=== PATIENT | male | born 1980 | race Caucasian/White ===

== ENCOUNTER 2020-04-07 11:15 | Emergency (ER) | payer OTHER, MEDICAID, SELFPAY ==
[2020-04-07 11:16] VITALS: BP 164/100; PULSE 80; PULSE 97; RESP 19; RESP 22; TEMP 36.4; O2SAT 100; O2SAT 98; BMI 28.7
--- NOTE | 2020-04-07 11:23 | ED.VIS.GEN ---
History of Present Illness Chief Complaint: Allergic Reaction Informant: Patient Narrative: Patient is a 39-year-old male who presents to the emergency department for suspected allergic reaction. He took a new medication, Lexapro around 10 AM this morning. Shortly after he started feel his throat was closing. He had difficulty with breathing. He felt like his voice was changing. He can immediately to the emergency department did not take any medications for this. He has never had this happen before in the past. He is starting to feel better upon arrival to the ED. Patient is also on lisinopril but has been on it for 10 years. His doctor actually told him to stop this this morning and he was started on Cozaar instead. He did not take a first dose of this yet. Patient denies any rashes or itching elsewhere. Denies any chest pain or palpitations. No abdominal pain or nausea/vomiting. Past Medical History - Allergies and Home Meds Allergies/Adverse Reactions: Allergies escitalopram [From Lexapro] Allergy (Verified 04/07/20 11:22) Angioedema Primary Care Physician: Karan Cheung MD [Primary Care Provider] - 3-5 Days Prior records reviewed: Yes Past Medical History: - - Anxiety/depression, hypertension Smoking Status: Never smoker Review of Systems All systems negative except as indicated General: Denies: Chills, Fever, Sweats Eyes: Denies: Visual changes - bilaterally, Diplopia ENT: Denies: Rhinorrhea, Sore throat Cardiovascular: Denies: Chest pain, Palpitations Respiratory: Reports: Dyspnea. Denies: Cough, Dyspnea on exertion Gastrointestinal: Denies: Abdominal pain, Nausea, Vomiting, Diarrhea Musculoskeletal: Denies: Back pain, Extremity Pain Skin: Denies: Rash, Wounds Neurological: Denies: Headache, Weakness, Numbness Allergy: Reports: Swelling of the mouth. Denies: Uticaria, Swelling of the tongue Physical Exam Vital Signs/Narrative: Vital Signs Temp Pulse Resp BP Pulse Ox 04/07/20 11:16 97.6 F L 97 22 H 164/100 H 100 Inital Vital Signs reviewed: Yes General: Well nourished, Well developed, No Acute Distress Head: Normocephalic, Atraumatic Eyes: Perrl, EOMI ENT: Moist mucous membranes, No rhinorrhea, - - Oropharynx is clear without any significant swelling or lesions. Neck: Supple, Nontender Cardiovascular: Regular rate, Regular rhythm, No murmurs Respiratory: No distress, CTA bilaterally, Chest nontender, - - No stridor Abdomen: Soft, Nontender, Nondistended, Normal bowel sounds Back: Nontender, Normal Inspection Extremities: Nontender, No edema Skin: Normal color, No rash Neurological: Alert, Oriented x3, Cranial nerves II-XII grossly intact, Normal Strength, Normal Sensation Psychological: Normal affect, Normal Mood Diagnostic/Tx/Re-eval - Medical Decision Making Patient presents to the emergency department for throat swelling, difficulty breathing after taking Lexapro for the first time. Upon arrival to the emergency department vital signs within normal limits. He is not hypotensive. No rash. He does not have any signs of airway traction. Satting well on room air. Will give a dose of steroid, Benadryl and Pepcid. We will have him discontinue the Lexapro. He is already being taken off the lisinopril and started on a new blood pressure medication. Patient will be monitored in the emergency department for any repeat symptoms. Patient observed in the ED for 1 hour. He states he feels that he is completely back to his baseline. He believes that this might have been related to his anxiety. I still recommend he do not restart the Lexapro until he talks to his PCP. Patient does feel comfortable going home at this time. Warning signs and symptoms which to return to the ED are reviewed with him. He understands and is agreeable this plan. All questions answered. ED Disposition - Plan for ED Patient: Disposition: Home or Assisted Living Diagnosis: Allergic reaction caused by a drug Instructions: ED ADVERSE DRUG REACTION Allergic Referrals: Karan Cheung MD [Primary Care Provider] - 3-5 Days
[2020-04-07] MEDS: DiphenhydrAMINE 50 MG/ML Syringe 25 MG IV (11:25)
[2020-04-07] MEDS: MethylPREDNISolone 125 MG/2 ML Vial IV (11:25)
[2020-04-07] MEDS: Famotidine 200 MG/20 ML MDV 20 MG in 0.9% Normal Saline (Pres. free 8 ML 300 MG IV (11:49)
[2020-04-07 11:53] VITALS: BP 128/101; PULSE 68; RESP 15; O2SAT 99
[2020-04-07 12:21] VITALS: BP 125/94; PULSE 82; RESP 16; O2SAT 97
[2020-04-07 12:53] VITALS: BP 114/76; PULSE 73; RESP 18; O2SAT 97
== END 2020-04-07 12:53 | disposition home or self-care (01) ==
LOC: ED 11:47
PROVIDERS: Emergency Provider Emergency Medicine; PCP Family Medicine
DX: M79.89 Other specified soft tissue disorders (principal); T43.225A Adverse effect of selective serotonin reuptake inhibitors, initial encounter; I10 Essential (primary) hypertension; Z79.899 Other long term (current) drug therapy
CPT/HCPCS: 96374; 96375; 99283; A4216; J3490

== ENCOUNTER 2020-06-24 14:29 | Emergency (ER) | payer SELFPAY ==
[2020-06-24] VITALS (8 sets, daily range): BP systolic 134–155; BP diastolic 64–103; PULSE 67–97; RESP 10–24; TEMP 36.1; O2SAT 95–98; BMI 33.5
--- NOTE | 2020-06-24 14:47 | EKG12_ITS ---
Test Reason : PALPS Blood Pressure : / mmHG Vent. Rate : 089 BPM Atrial Rate : 089 BPM P-R Int : 122 ms QRS Dur : 078 ms QT Int : 390 ms P-R-T Axes : 063 024 050 degrees QTc Int : 474 ms Normal sinus rhythm Nonspecific ST and T wave abnormality Abnormal ECG Confirmed by YAO GARCIA, PATO ([id number]), associate editor ISRAEL GAGE ([id number]) on 06/27/2020 11:24:58 AM Referred By: LEELEE Confirmed By:PATRICIA SAMAYOA MD
--- NOTE | 2020-06-24 14:47 | RAD_ITS ---
STUDY: X-RAY CHEST REASON FOR EXAM: Male, 39 years old. HEART RACING INTERMITTENTLY, PT STATES IT WAS OVER 160''S RESTING IN BED TECHNIQUE: Single AP portable view of the chest. COMPARISON: None. FINDINGS: Azygos lobe. Normal variant. The lungs are clear and expanded. There is no demonstrated pleural abnormality. Normal size heart. Normal mediastinum and funmi. Normal visualized pulmonary arteries. Normal visualized aortic arch and descending thoracic aorta. Normal visualized thoracic spine. Normal visualized ribs, clavicles, and shoulders. There is no demonstrated abnormality of the visualized soft tissue structures of the upper abdomen. RAD/Chest 1 View (Portable) IMPRESSION: Normal x-ray examination of the chest. Electronically Signed: Juvenal Morin MD at 15:14 EST , Service support ,
[2020-06-24 14:55] LABS: Absolute Lymphocyte Count 2.78 X10^3/uL (0.83-4.51); Absolute Neutrophil Count 5.8 X10^3/uL (2.0-7.7); Basophil# 0.03 X10^3/uL; Basophil% 0.3 % (0-1); Eosinophil# 0.07 X10^3/uL; Eosinophils% 0.8 % (0-5); Hematocrit 48.7 % (40-54); Lymphocyte # 2.78 X10^3/ul (4.0); Lymphocyte % 30.3 % (19-41); Mean Corp Hgb Conc 32.9 g/dL (32-36); Mean Corpuscular Hgb 29.7 pg (27.0-32.0); Mean Corpuscular Volume 90.5 fL (80-94); Mean Platelet Vol. 10.9 fl (6.2-12.0); Monocyte# 0.47 X10^3/uL; Monocyte% 5.1 % (0-10); NRBC Flagged by Analyzer 0 % (0-5); Neutrophil # 5.77 X10^3/uL (2.7-7.7); Platelet Count 170 K/mm3 (150-450); RBC Distribution Width CV 12.1 % (11.6-14.6); RBC Distribution Width SD 40.1 fl (35.1-43.9); Red Blood Count 5.38 M/mm3 (4.6-6.2); White Blood Count 9.2 K/mm3 (4.4-11.0)
[2020-06-24 15:11] LABS: Anion Gap 3 (5-15); BUN 12 mg/dL (7-18); BUN/Creat Ratio 11.3 RATIO (10-20); Calcium,Total 9.2 mg/dL (8.5-10.1); Chloride 104 mmol/L (98-107); Creatinine, Serum 1.06 mg/dL (0.70-1.30); EST Glomerular Filtration Rate 83 mL/min (>60); Est Glom Filt Rate - Afr Amer 100 mL/min (>60); Estimated Creatinine Clearance 88.34 ml/min; Glucose 124 mg/dL (74-106); Potassium 3.2 mmol/L (3.5-5.1); Sodium Level 137 mmol/L (136-145)
--- NOTE | 2020-06-24 15:31 | CT_ITS ---
STUDY: CTA CHEST REASON FOR EXAM: Male, 39 years old. R/O PE, ELEVATED HR RADIATION DOSAGE (If Supplied By Facility): CTDIvol = ( 7.38 ) mGy, DLP = ( 454.00 ) mGycm TECHNIQUE: The examination was performed with the intravenous administration of IV 100mL [id number]-370. Post-processing of the angiographic images was performed, with multiplanar reformation and 3D reconstruction. Individualized dose optimization techniques were used for this CT. COMPARISON: None. FINDINGS: Normal enhancement of the main pulmonary artery and right and left pulmonary arteries. The interlobar and segmental vessels well opacified without evidence for intraluminal clot. Although there is no definitive intraluminal clot observed examination of the subsegmental vessels is severely limited by multiple linear filling defects created by motion artifact limiting evaluation of the study. If strong clinical suspicion for pulmonary embolus would recommend DOPPLER scan of the deep venous system of lower extremities and radionuclide pulmonary ventilation/perfusion for further evaluation Normal thoracic aorta and visualized great vessels. There is no demonstrated aortic dissection. Normal heart and pericardium. Normal mediastinum. Normal hilar regions. Normal visualized trachea and bronchi. The lungs are well expanded. Normal pulmonary parenchyma. Normal pleura. Normal chest wall structures. Dorsal spine demonstrates minor spondylosis Normal visualized upper abdomen. CT/CTA Chest W/WO Contrast IMPRESSION: No acute abnormalities however study of the subsegmental pulmonary arteries is severely limited by linear defects created by motion artifact. Radionuclide ventilation and perfusion scan and DOPPLER ultrasound of the deep venous system of lower extremities is recommended for further evaluation if indicated Electronically Signed: Regan Hu MD at 17:02 EST , Service support ,
--- NOTE | 2020-06-24 16:24 | ED.DCSUM_ITS ---
- ER Visit Summary Date of Service: 06/24/20 Chief Complaint: Chest pain, palpitations History of Present Illness: The patient is a 39 M presenting with chest pain, palpitations. This started several hours prior to arrival. He states he has had elevated heart rate and chest pain. He states he drank a normal amount of caffeine today. He has mild associated shortness of breath. His mom has a history of DVT, no other PE/DVT risk factors. Physical Examination: Vitals are stable. Patient is afebrile. Alert no acute distress. HEENT exam is unremarkable. Neck is supple. Lungs are clear and equal bilaterally. Heart is regular rate and rhythm. Abdomen is soft nontender nondistended. Extremities are unremarkable. Skin is warm and dry. No focal neurologic deficit. Remainder of exam is unremarkable. Emergency Department Course and Treatment: EKG is sinus rhythm rate of 89 with no acute ischemic changes. CBC, chemistries unremarkable other than potassium 3.2, glucose 124. Troponin is negative. Chest x-ray read by myself and radio logy shows no acute process. CTA chest shows No acute abnormalities however study of the subsegmental pulmonary arteries is severely limited by linear defects created by motion artifact. D-dimer was added on and is normal. Delta troponin was obtained and is also negative. TSH normal. On reevaluation patient is resting comfortably. He is advised to follow-up with his primary care physician. Advised return to ED for worsening complaints. Disposition: Discharge home Impression: Atypical chest pain, palpitations This note was generated with [employer] dictation software. It may contain incorrect words, spelling, and punctuation that were not noted in review of the chart prior to signing ED Disposition - Plan for ED Patient: Instructions: ED Chest Pain, Uncertain Cause Referrals: Karan Cheung MD [Primary Care Provider] -
[2020-06-24 16:27] LABS: Thyroid Stim Hormone (TSH) 1.32 uIU/mL (0.358-3.74)
--- NOTE | 2020-06-24 18:38 | ED.DEP ---
ED Disposition - Plan for ED Patient: Instructions: ED Chest Pain, Uncertain Cause Referrals: Karan Cheung MD [Primary Care Provider] -
== END 2020-06-24 18:48 | disposition home or self-care (01) ==
LOC: ED 15:47
PROVIDERS: Emergency Provider Emergency Medicine; PCP Family Medicine
DX: R07.89 Other chest pain (principal); R00.2 Palpitations; I10 Essential (primary) hypertension; Z72.0 Tobacco use
CPT/HCPCS: 71045; 71275; 80048; 84443; 84484; 85025; 85379; 93005; 99285; Q9967; A4216

== ENCOUNTER 2020-07-12 15:45 | Emergency (ER) | payer MEDICAID, SELFPAY ==
[2020-06-24 14:29] VITALS: BMI 33.5
[2020-07-12 15:46] VITALS: BP 174/99; PULSE 89; RESP 16; TEMP 35.8; O2SAT 100; BMI 26.7
--- NOTE | 2020-07-12 15:53 | ED.RN ---
CHARGE NURSE NOTIFIED OF PT SX WHEN SENDING PT BACK FROM TRIAGE AT 1551.
[2020-07-12 16:01] VITALS: BP 176/112; PULSE 84; RESP 12; O2SAT 100
[2020-07-12 16:19] VITALS: BP 167/100; PULSE 82; RESP 16; O2SAT 98
--- NOTE | 2020-07-12 16:24 | ED.VISSUMM ---
- ER Visit Summary Date of Service: 07/12/20 Chief Complaint: Headaches and hypertension History of Present Illness: The patient is a 39 M [place] hypertension. He was previously on lisinopril which was controlling his blood pressure well. He said about a month ago he was 7 intermittent dizziness they change his blood pressure medication losartan since that time is had trouble with elevated blood pressures and headaches. Denies any head trauma. Denies any nausea, vomiting, diarrhea or fever. He states that the dizziness he was having he thinks was related to something else and not the lisinopril that he was previously taking. Physical Examination: Middle-aged male no acute distress initial blood pressure 176/112. HEENT exam normal. Pupils round reactive light. No facial droop. Normal speech. No signs of trauma. Neck nontender no lymphadenopathy. Lungs clear to auscultation bilaterally. Heart regular rhythm no murmur rate about 80. Abdomen soft nontender normal bowel sounds no peritoneal signs. Patient moving all 4 extremities. Calves nontender without edema or cords. Normal eye dropper assembler strength 5/5 bilaterally. Dorsi plantarflexion intact. Neurologically is awake alert with no focal motor deficits. NIH score is 0. Fingertip to nose [id number] within normal limits bilaterally. Normal motor strength and sensation. Test Results: Potassium level 3.3 previously was 3.2. CAT scan of the brain was read by the radiologist and reviewed by me shows no acute abnormality. Repeat exam patient is doing well at 1825. Pressure at that time was 145/84 is feeling better. Emergency Department Course and Treatment: Patient with acute on chronic hypertension. We treated the dose of lisinopril which used to control his blood pressure well. Due to the headaches and hypertension CT will be obtained. He recently had screening labs which were unremarkable he has a normal exam currently I do not think any labs are necessary to obtain at this time. Treatment Plan: Stop his current blood pressure medication and restart his lisinopril which was working well for him in the past. Follow-up with his primary care physician and make them aware that we change his blood pressure medication back to the prior. Disposition: Discharge Impression: Acute on chronic hypertension Headaches secondary to hypertension This note was generated with [employer] software. It may contain incorrect words, spelling, and punctuation that were not noted in review of the chart prior to signing ED Disposition - Plan for ED Patient: Referrals: Karan Cheung MD [Primary Care Provider] -
--- NOTE | 2020-07-12 16:41 | CT_ITS ---
STUDY: CT BRAIN WITHOUT CONTRAST REASON FOR EXAM: Male, 39 years old. HEADACHE WITH HTN RADIATION DOSAGE (If Supplied By Facility): CTDIvol = ( 44.99 ) mGy, DLP = ( 745.49 ) mGycm TECHNIQUE: Transaxial CT imaging of the brain was performed without administration of intravenous contrast material. Individualized dose optimization techniques were used for this CT. COMPARISON: No relevant priors. FINDINGS: Normal soft tissue structures. Normal calvarium. Normal size ventricles and extra-axial spaces for the patient''s age. Normal white matter tracts of the cerebral hemispheres. Normal basal ganglia and thalami. Normal brainstem. Normal cerebellum. There is no intracranial hemorrhage. There are no findings of an acute ischemic infarction. Normal visualized paranasal sinuses. CT/Brain/Head without Contrast IMPRESSION: Normal unenhanced CT scan of the brain. Electronically Signed: Edison Willoughby MD at 17:01 EST Tel , Service support ,
[2020-07-12] MEDS: Lisinopril 20 MG Tablet PO (16:50)
[2020-07-12 16:51] VITALS: BP 166/106; PULSE 85; RESP 16; O2SAT 100
[2020-07-12 17:02] LABS: Potassium 3.3 mmol/L (3.5-5.1)
[2020-07-12 17:18] VITALS: BP 156/94; PULSE 72; RESP 14; O2SAT 100
[2020-07-12 18:25] VITALS: BP 145/84; PULSE 64; PULSE 68; RESP 12; RESP 16; O2SAT 98
--- NOTE | 2020-07-12 18:32 | ED.DEP ---
ED Disposition - Plan for ED Patient: Disposition: Home or Assisted Living Instructions: ED Hypertension, Established Referrals: Karan Cheung MD [Primary Care Provider] - 3-5 Days Additional Instructions: Stop your current blood pressure medication. Restart your lisinopril at the prior dose at 10 mg a day. Check your blood pressure at least twice daily and if it is still running too high they may need to adjust the dose. Call your primary care physician's office follow-up and make sure they know that we stopped your current blood pressure medication and restarted you on the lisinopril. Otherwise for your potassium make sure you are eating plenty of fruits and vegetables and that should continue to come back up to normal.
== END 2020-07-12 18:31 | disposition home or self-care (01) ==
LOC: ED 16:34
PROVIDERS: Emergency Provider Emergency Medicine; PCP Family Medicine
DX: R51.9 Headache, unspecified (principal); I10 Essential (primary) hypertension; Z72.0 Tobacco use; Z79.899 Other long term (current) drug therapy
CPT/HCPCS: 70450; 84132; 99284; A4216

== ENCOUNTER 2020-11-01 20:44 | Emergency (ER) | payer MEDICAID, SELFPAY ==
[2020-11-01 20:45] VITALS: BP 142/73; PULSE 83; RESP 16; TEMP 36.4; O2SAT 99; BMI 26.6
[2020-11-01 21:08] VITALS: BP 129/92; PULSE 84; RESP 16; O2SAT 98
--- NOTE | 2020-11-01 21:58 | EDS_ITS ---
HPI HPI - GI History of Present Illness Chief Complaint: Abd Pain Informant: patient Abdominal Pain/Flank Pain Onset: Hours (2-3) Context: Gradual Onset Timing: Intermittent Quality: Aching and Dull Location: RLQ (Without migration or radiation) Current Severity: Mild Maximum Severity: Mild Worsened by: - (After bowel movement once and after working out another time. Otherwise nothing.) Relieved by: Nothing Nausea/Vomiting/Emesis GI Symptom: Negative for Nausea and Vomiting Diarrhea/Melena/Hematochezia GI Symptom: Negative for Diarrhea, Melena and Hematochezia Associated Symptoms Associated Symptoms: Negative for Dysuria, Frequency, Hematuria and Urgency Narrative Narrative: Pain is intermittent. Not affecting his appetite. No nausea or vomiting. His low back is a little sore but unclear if this pain is responsible for that. Sent from urgent care out of concern for appendicitis. Pain is in the right lower quadrant and has been there the entire time. No abrupt severe onset, and he states it has not been severe but he was concerned that since he is on Suboxone maybe it is covering something up here. No history of any abdominal surgeries. He has had hemorrhoid surgery 5 or so years ago, he states he is having some minor bleeding and discomfort from nose but no major pain. PFSH PFSH Medical History Anxiety Hypertension Smoker Home Medications buprenorphine-naloxone [Suboxone] 1 film SUBLINGUAL DAILY 11/01/20 [History Last Taken Unknown] dicyclomine 20 mg PO Q6H PRN #20 tab 11/01/20 [Rx Last Taken Unknown] lisinopril [Zestril] 10 mg PO DAILY 11/01/20 [History Last Taken Unknown] Allergy/AdvReac Type Severity Reaction Status Date / Time escitalopram [From Lexapro] Allergy Angioedema Verified 11/01/20 20:44 Opioids - Morphine Analogues AdvReac NEEDS Verified 11/01/20 22:44 FOLLOW-UP Surgical History H/O hemorrhoidectomy Social History Smoking Status: Current every day smoker tobacco type: cigarettes ROS ROS ED Constitutional Constitutional ED: Denies chills or fever(s) Eyes Eyes: Denies change in vision or diplopia ENT ENT ED: Denies rhinorrhea or sore throat Cardiovascular Cardiovascular: Denies chest pain or palpitations Respiratory/Chest Respiratory/Chest: Denies cough or dyspnea Gastrointestinal Gastrointestinal: Reports abdominal pain, hematochezia and hemorrhoids; Denies diarrhea, melena, nausea or vomiting Genitourinary Genitourinary ED: Denies dysuria or hematuria Musculoskeletal Musculoskeletal: Reports back pain; Denies neck pain Integumentary Denies abscess or rash Neurologic Neurologic: Denies headache(s), paresthesias or weakness Psychiatric Psychiatric: Denies anxiety or suicidal thoughts EXAM Physical Exam Const Vital Signs: 11/01/20 20:45 11/01/20 21:08 Temperature 97.6 F L Temperature Source Temporal Pulse Rate 83 84 Respiratory Rate 16 16 Blood Pressure 142/73 H 129/92 H Blood Pressure Mean 96 104 Pulse Ox 99 98 Oxygen Delivery Method Room Air Room Air Positive well nourished and well developed General Appearance ED: well developed and NAD HEENT Reports moist mucous membranes normocephalic and atraumatic Eyes PERRL and EOMs intact bilaterally Neck full ROM and supple Resp normal respiratory effort and clear to auscultation bilaterally Cardio regular rate, regular rhythm and no murmurs GI non-tender and non-distended GI Narrative: With negative Rovsing, obturator, psoas signs. Auscultation: normoactive bowel sounds Palpation: soft Back/Spine no CVA tenderness General Back: other FROM Extremity normal to inspection General Extremety ED: Negative for edema, pulses abnormal or tenderness General Extremity: Negative for edema or pulses abnormal Neuro oriented x3, CN's II-XII intact bilaterally and no sensory deficits noted Sensorium / Orientation: awake and alert Motor Exam: strength 5/5 throughout Skin no rashes or lesions noted and no wounds MDM MDM MDM Narrative Medical decision making narrative: Work-up is negative, normal appendix seen and his history is less consistent with acute appendicitis, I reassured the patient, he was treated with Toradol and Bentyl, he felt a lot better. My suspicion is that this is some type of intestinal pain. Additionally he states that for the last several years he has had what sounds like mild intermittent urinary retention, he goes to urinate and cannot empty but feels like he needs to continue to go although the stream stops. Then with some time and effort he can actually get himself to empty all the way. That seems to be worse when he drinks less, and better when he drinks more fluid as he did today. None of that is new or different lately, other than the fact that he drank more water today. He agrees that he needs to follow-up for that. He does not seem like he is on any medications that would be causing that, he is on lisinopril and Suboxone. Gave him a prescription for dicyclomine use as needed and advised close outpatient follow-up with regards to this intermittent abdominal pain. Lab Data Attestation: I reviewed the patient's lab results. Labs: Laboratory Results - last 24 hr 11/01/20 11/01/20 11/01/20 21:54 21:54 21:56 WBC 9.9 RBC 4.83 Hgb 14.8 Hct 44.9 MCV 93.0 MCH 30.6 MCHC 33.0 RDW Std Deviation 42.5 RDW Coeff of [place]oy 12.3 Plt Count 158 MPV 10.9 Immature Gran % (Auto) 0.900 Neut % (Auto) 58.8 Lymph % (Auto) 32.2 [place] % (Auto) 6.1 Eos % (Auto) 1.4 Baso % (Auto) 0.6 Absolute Neuts (auto) 5.8 Absolute Lymphs (auto) 3.17 Nucleated RBC % 0 Sodium 139 Potassium 4.4 Chloride 103 Carbon Dioxide 33.0 H Anion Gap 3 L BUN 14 Creatinine 0.90 Estim Creat Clear Calc 103.03 Est GFR (MDRD) Af Amer 121 Est GFR (MDRD) Non-Af 100 BUN/Creatinine Ratio 15.5 Glucose 91 Calcium 9.3 Urine Color Yellow Urine Clarity Clear Urine pH 7.0 Ur Specific [place] 1.010 Urine Protein Negative Urine Glucose (UA) Normal Urine Ketones Negative Urine Occult Blood Negative Urine Nitrite Negative Urine Bilirubin Negative Urine Urobilinogen Normal Ur Leukocyte Esterase Negative Urine RBC 0 SEEN Urine WBC 0 SEEN Ur Squamous Epith Cells 0 SEEN Urine Bacteria 0 SEEN Urine Mucus 0 SEEN Radiography Diagnostic Testing: Radiology Impression Abdomen/Pelvis CT 11/01/20 21:58 IMPRESSION: Normal unenhanced CT of the abdomen and pelvis. Unremarkable appendix Electronically Signed: Nadeem Guillermo DO at 22:46 EDT Tel , Service support , Discharge Plan Triage Chief Complaint: Abd Pain ED Provider: Santy Terrazas Dx/Rx/DC Orders Clinical Impression: Abdominal pain, acute, right lower quadrant Instructions: Abdominal Pain Prescriptions: New dicyclomine 20 mg tablet 20 mg PO Q6H PRN (Reason: abdominal discomfort) Qty: 20 RF: 0 No Action lisinopril [Zestril] 10 mg tablet 10 mg PO DAILY RF: 0 buprenorphine-naloxone [Suboxone] 8-2 mg film 1 film sublingual DAILY RF: 0 Primary Care Provider: Karan Cheung Referrals: Karan Cheung MD [Primary Care Provider] - 1 Week if not improving Disposition Disposition: Home, self care
--- NOTE | 2020-11-01 21:58 | CT_ITS ---
STUDY: CT ABDOMEN AND PELVIS WITHOUT CONTRAST REASON FOR EXAM: Male, 40 years old. Pain RLQ RADIATION DOSAGE (If Supplied By Facility): CTDIvol = ( 7.97 ) mGy, DLP = ( 482.20 ) mGycm TECHNIQUE: Transaxial images were obtained from the dome of the diaphragm to the symphysis pubis without oral contrast, and without intravenous contrast. Sagittal and coronal images were reconstructed. Individualized dose optimization techniques were used for this CT. COMPARISON: 06/24/2020 FINDINGS: The visualized lung bases are unremarkable. The visualized portions of the heart are within normal limits. Normal liver. Normal gallbladder and extrahepatic biliary system. Normal spleen. Normal pancreas. Normal bilateral adrenal glands. Benign calcification in the right adrenal gland Normal right kidney. Normal left kidney. Normal visualized stomach. Normal small intestine. Normal colon. The appendix is visualized and appears normal. Normal abdominal aorta. Normal inferior vena cava. Normal retroperitoneum. Normal urinary bladder. Normal prostate Normal abdominal wall. Normal osseous structures. CT/Abdomen/Pelvis without Cont IMPRESSION: Normal unenhanced CT of the abdomen and pelvis. Unremarkable appendix Electronically Signed: Nadeem Guillermo DO at 22:46 EDT Tel , Service support ,
[2020-11-01 22:01] LABS: Bacteria 0 SEEN /hpf (None Seen); Mucous, Urine 0 SEEN /hpf (<or=2+); Red Blood Cells-Urine 0 SEEN /hpf (0-5); Squamous Epithelial Cells - UA 0 SEEN /hpf (0-5); White Blood Cells 0 SEEN /hpf (0-5)
[2020-11-01 22:02] LABS: Absolute Lymphocyte Count 3.17 X10^3/uL (0.83-4.51); Absolute Neutrophil Count 5.8 X10^3/uL (2.0-7.7); Basophil# 0.06 X10^3/uL; Basophil% 0.6 % (0-1); Eosinophil# 0.14 X10^3/uL; Eosinophils% 1.4 % (0-5); Hematocrit 44.9 % (40-54); Hemoglobin 14.8 g/dL (13.0-16.5); Lymphocyte # 3.17 X10^3/ul (0.83-4.51); Lymphocyte % 32.2 % (19-41); Mean Corpuscular Hgb 30.6 pg (27.0-32.0); Mean Platelet Vol. 10.9 fl (6.2-12.0); Monocyte% 6.1 % (0-10); NRBC Flagged by Analyzer 0 % (0-5); Neutrophil % 58.8 % (47-70); Platelet Count 158 K/mm3 (150-450); RBC Distribution Width CV 12.3 % (11.6-14.6); RBC Distribution Width SD 42.5 fl (35.1-43.9); Red Blood Count 4.83 M/mm3 (4.6-6.2); White Blood Count 9.9 K/mm3 (4.4-11.0)
[2020-11-01 22:05] LABS: Color, Urine Yellow (Yellow); Glucose, Dipstick Normal (Normal); Ketone-Dipstick Negative (Negative); Leukocyte Esterase-Dipstick Negative /ul (Negative); Nitrite-Dipstick Negative (Negative); Occult Blood-Urine Negative /ul (Negative); Protein-Dipstick Negative (Negative); Urine Bilirubin Dipstick Negative (Negative); Urine Clarity Clear (Clear); Urine Urobilinogen Normal (Normal)
[2020-11-01] MEDS: Dicyclomine 10 MG Capsule 20 MG PO (22:17)
[2020-11-01] MEDS: Ketorolac 15 MG/ML Vial IV (22:17)
[2020-11-01 22:19] LABS: Anion Gap 3 (5-15); BUN 14 mg/dL (7-18); BUN/Creat Ratio 15.5 RATIO (10-20); Calcium,Total 9.3 mg/dL (8.5-10.1); Chloride 103 mmol/L (98-107); EST Glomerular Filtration Rate 100 mL/min (>60); Est Glom Filt Rate - Afr Amer 121 mL/min (>60); Estimated Creatinine Clearance 103.03 ml/min; Glucose 91 mg/dL (74-106); Potassium 4.4 mmol/L (3.5-5.1); Sodium Level 139 mmol/L (136-145)
== END 2020-11-01 23:27 | disposition home or self-care (01) ==
PROVIDERS: Emergency Provider Emergency Medicine; PCP Family Medicine
DX: R10.31 Right lower quadrant pain (principal); F41.9 Anxiety disorder, unspecified; I10 Essential (primary) hypertension; F17.210 Nicotine dependence, cigarettes, uncomplicated; Z79.899 Other long term (current) drug therapy
CPT/HCPCS: 74176; 80048; 81001; 85025; 96374; 99284; A4216